=== PATIENT | female | born 1965 | race Caucasian/White ===

== ENCOUNTER 2016-05-04 07:14 | Emergency (ER) | payer OTHER ==
--- NOTE | 2016-05-04 08:09 | ED CLINICAL REPORT ---
Clinical Report - Physicians/Mid Levels [facility] [address] [place] [address] 05/04/2016 7:16 [id number] Time Seen: 07:33 May 04 2016. Arrived- By private vehicle. Historian- patient. CPT: ER phys charges level 4 plus (#154671). Application short arm splint (#[id number]). HISTORY OF PRESENT ILLNESS Chief Complaint: Injury to left forearm. The injury happened just prior to arrival. Occurred at home. The patient sustained a moderate direct blow (Kicked by horse.). Patient is experiencing moderate pain. No other injury. REVIEW OF SYSTEMS The patient has had swelling. No tingling, numbness, weakness, suspected foreign body or skin laceration. All systems otherwise negative, except as recorded above. PAST HISTORY See nurses notes. Animal Bite. ADDITIONAL SURGERIES: Endometrial ablation. Spinal fusion. Tonsillectomy & Adenoidectomy. Tubal Ligation. Medications: None. Allergies: No Known Drug Allergy. SOCIAL HISTORY Never smoker. No alcohol use or drug use. ADDITIONAL NOTES The nursing notes have been reviewed. PHYSICAL EXAM Vital Signs: 05/04/2016 07:28 BP: 135/83. HR: 86. RR: 18. O2 saturation: 98%. Temp: 97.8 F. Appearance: Alert. Appears to be in pain. Patient in moderate distress. Head: Head atraumatic. Neck: Normal inspection. C-spine non-tender. CVS: Normal heart rate and rhythm. Respiratory: Breath sounds normal. Chest nontender. Abdomen: No visible injury. Nontender. Back: Normal inspection. Skin: Skin intact. Skin warm. Normal skin color. Extremities: Left forearm: moderate tenderness and mild swelling located in the distal forearm. Neurovascular intact distally. No abrasion, ecchymosis or deformity. Extremities otherwise negative. Neuro, Vascular and Tendons: Vascular status intact. Sensation intact. Motor intact. Neuro: Oriented X 3. No motor deficit. No sensory deficit. LABS, X-RAYS, AND EKG Lt Forearm X-ray: Fracture of the distal ulna. Views: AP and lateral. Technique: good. The X-rays were independently viewed by me and interpreted contemporaneously by me. PROGRESS AND PROCEDURES Splint Application: Fiberglass short arm splint, sugar tong splint and sling applied to left forearm. Splint applied by tech with direct supervision by the ED physician. Reassessed extremity following splint application. Neurovascular intact. Follow-up recommended within 5 days. Course of Care: percocet 1 po Patient is stable. Symptoms better. Patient/family counseled. Disposition: Discharged. Condition: stable. CLINICAL IMPRESSION Closed nondisplaced transverse fracture of the distal, shaft of the left ulna INSTRUCTIONS Elevate affected areas above chest level today, for one days until better. Wear simple sling until released. Wear fiberglass splint until released. Do not work with left hand until released. Warnings: SEDATIVE MEDICATION: You were given sedative medication during your visit. Do not drive or operate dangerous machinery. GENERAL WARNINGS: Return or contact your physician immediately if your condition worsens or changes unexpectedly, if not improving as expected, or if other problems arise. Prescription Medications: Oxycodone/APAP 5 mg/325 mg: take 1 tablet orally every 6 hours as needed for pain. Dispense fifteen (15). No refills. Follow-up: Follow up with an orthopedic surgeon [phone] in five days. Call for the next available appointment. Understanding of the discharge instructions verbalized by patient and family. Discharge instructions reviewed with and understanding was verbalized by spouse. (Electronically signed by Gregg Jackson MD 05/07/2016 0:34)
--- NOTE | 2016-05-04 08:09 | ED ORDER SUMMARY ---
..... Patient: ALBERT SÁNCHEZ OrderSheet [facility] VisitID: [id number] [address] [place] [address] 50y, F Registration Date/Time: 05/04/2016 ORDER SHEET Weight: 65.7 kg (stated) Allergies: No Known Drug Allergy GENERAL ORDERS: Forearm Left Urgent (07:33 05/04/2016 Evaristo COCHRAN) (Ack 7:37 TBergley) (8:09 LWhalen R.N.) Splint (UE) (Left) (Sugar Tong) (Sugar Tong) (07:52 05/04/2016 Evaristo COCHRAN) (8:02 TBergley) Sling - arm (07:52 05/04/2016 Evaristo COCHRAN) (8:02 TBergley) MEDICATION ORDERS: Oxycodone-APAP PO 5/325 mg (NOW) (07:51 05/04/2016 Evaristo COCHRAN) (8:09 LWhaldagmar R.N.) IV FLUIDS: ORDER SHEET NOTES: [Electronically signed by Terrie De La Rosa R.N. (19:02 05/05/2016)] [Electronically signed by Gregg Jackson MD (00:34 05/07/2016)] [Electronically locked/signed by Terrie De La Rosa R.N. (19:02 05/05/2016)]
--- NOTE | 2016-05-04 08:09 | ED ORDER SUMMARY ---
..... Patient: ALBERT SÁNCHEZ OrderSheet [facility] VisitID: [id number] [address] [place] [address] 50y, F Registration Date/Time: 05/04/2016 ORDER SHEET Weight: 65.7 kg (stated) Allergies: No Known Drug Allergy GENERAL ORDERS: Forearm Left Urgent (07:33 05/04/2016 Evaristo COCHRAN) (Ack 7:37 TBergley) (8:09 LWhalen R.N.) Splint (UE) (Left) (Sugar Tong) (Sugar Tong) (07:52 05/04/2016 Evaristo COCHRAN) (8:02 TBergley) Sling - arm (07:52 05/04/2016 Evaristo COCHRAN) (8:02 TBergley) MEDICATION ORDERS: Oxycodone-APAP PO 5/325 mg (NOW) (07:51 05/04/2016 Evaristo COCHRAN) (8:09 LWhaldagmar R.N.) IV FLUIDS: ORDER SHEET NOTES: [Electronically signed by Terrie De La Rosa R.N. (19:02 05/05/2016)] [Electronically signed by Gregg Jackson MD (00:34 05/07/2016)] [Electronically locked/signed by Terrie De La Rosa R.N. (19:02 05/05/2016)]
--- NOTE | 2016-05-04 08:09 | ED NURSING NOTES ---
Clinical Report - Nurses [place] [address] [place] [address] 05/04/2016 7:16 [id number] Triage time 07:2 May 04 2016. Acuity: LEVEL 3. Chief Complaint: INJURY TO THE LEFT FOREARM. BETO COMA SCORE: Beto Coma Scale: 15- eyes open spontaneously (4); best verbal response- oriented x 4 (5); best motor response- obeys commands (6). --07:33 Terrie De La Rosa R.N. 07:28 05/04/16. BP: 135/83. HR: 86. RR: 18. O2 saturation: 98%. Temp: 97.8 F. Pain level now 5/10. --07:33 Terrie De La Rosa R.N. Weight: 65.7 kg stated. Height/Length: 63 inches Per Patient. BMI: 25.7. --07:32 Terrie De La Rosa R.N. Medications None. --07:29 Terrie De La Rosa R.N. Allergies No Known Drug Allergy. --07:29 Terrie De La Rosa R.N. History Arrived by private vehicle. Historian: patient. Accompanied by family. Mechanism of injury: a single moderate blow by being kicked (by horse no shoes). No neck pain, weakness or numbness. Treatment BASKET HAND BRAIDER: None. PAST MEDICAL HX: Tetanus status: up-to-date. SOCIAL HX: Never smoker. No alcohol use or drug use. SELF HARM ASSESSMENT: A self harm assessment was performed. The patient answered "no" to the question "Have you recently felt down, depressed, or hopeless?" and "Do you have thoughts of harming or killing yourself?". FALL RISK ASSESSMENT: Fall risk assessment completed. No fall risk identified. NUTRITIONAL RISK ASSESSMENT: The nutritional risk assessment revealed no deficiencies. FUNCTIONAL ASSESSMENT: Functional assessment: no impairments noted. LEARNING NEEDS ASSESSMENT: The learning needs assessment revealed no barriers. ABUSE ASSESSMENT: Abuse assessment: (yes) The patient was asked "Do you feel safe in your home?". SKIN INTEGRITY ASSESSMENT: Skin integrity risk assessment completed. No skin integrity risk identified. --07:33 Terrie De La Rosa R.N. PROBLEMS: Animal Bite. --07:30 Terrie De La Rosa R.N. ADDITIONAL SURGERIES: Endometrial ablation. Spinal fusion. Tonsillectomy & Adenoidectomy. Tubal Ligation. --07:30 Terrie De La Rosa R.N. Interventions ID band on patient. --07:33 Terrie De La Rosa R.N. PHYSICAL ASSESSMENT Ambulatory to room. GENERAL / NEURO / PSYCH: Oriented X 4. Alert. Appears in no acute distress. Appears in pain. EXTREMITIES: Capillary refill is less than 2 seconds in the extremities. Extremity pulses are within normal limits. Extremities exhibit normal ROM. Neuro-vascular status intact to the extremity. Left forearm: tenderness. SKIN: Skin intact. Skin is warm and dry. --07:33 Terrie De La Rosa R.N. NURSING PROGRESS NOTES The plan of care for this patient includes an assessment with efforts to address patient positioning and appropriate ambient lighting; impairment of the musculoskeletal system. Cold pack applied. Extremity elevated. Reassurance given. Call light placed in reach. Side rails up x 1. Bed placed in lowest position. Brakes of bed on. --07:33 Terrie De La Rosa R.N. 07:58 05/04/2016 Oxycodone-APAP (Oxycodone-Acetaminophen) PO 5/325 mg Tablets 1 tab given. Allergies verified, confirmed 5 rights and sedative warning given to the patient and patient's instructor of spanish. --08:09 Terrie De La Rosa R.N. Sugar tong upper extremity splint applied to left arm by tech. Distal pulses intact, sensation intact and motor within normal limits. --08:16 Caroline Mcnair. DISPOSITION / DISCHARGE Departure time: 08:15 May 04 2016. Condition at departure: improved. No learning barriers present. Discharge instructions provided and reviewed with the patient and spouse. Reviewed warnings. Reviewed medication(s). Treatments reviewed. Reviewed referrals. Work note given. Patient and spouse verbalized understanding. Written instructions provided in Rwandan. The patient was discharged home and accompanied by spouse. She left the Emergency Department ambulatory and via private vehicle. Spouse driving. --08:29 Terrie De La Rosa R.N. 07:28 05/04/16. BP: 135/83. HR: 86. RR: 18. O2 saturation: 98%. Temp: 97.8 F. Pain level now 07/10. --08:29 Terrie De La oRsa R.N. Locked/Released at 05/05/2016 19:02 by Trerie De La Rosa R.N.
--- NOTE | 2016-05-04 08:09 | ED NURSING NOTES ---
Clinical Report - Nurses [place] [address] [place] [address] 05/04/2016 7:16 [id number] Triage time 07:2 May 04 2016. Acuity: LEVEL 3. Chief Complaint: INJURY TO THE LEFT FOREARM. BETO COMA SCORE: Beto Coma Scale: 15- eyes open spontaneously (4); best verbal response- oriented x 4 (5); best motor response- obeys commands (6). --07:33 Terrie De La Rosa R.N. 07:28 05/04/16. BP: 135/83. HR: 86. RR: 18. O2 saturation: 98%. Temp: 97.8 F. Pain level now 5/10. --07:33 Terrie De La Rosa R.N. Weight: 65.7 kg stated. Height/Length: 63 inches Per Patient. BMI: 25.7. --07:32 Terrie De La Rosa R.N. Medications None. --07:29 Terrie De La Rosa R.N. Allergies No Known Drug Allergy. --07:29 Terrie De La Rosa R.N. History Arrived by private vehicle. Historian: patient. Accompanied by family. Mechanism of injury: a single moderate blow by being kicked (by horse no shoes). No neck pain, weakness or numbness. Treatment PET TECHNOLOGIST: None. PAST MEDICAL HX: Tetanus status: up-to-date. SOCIAL HX: Never smoker. No alcohol use or drug use. SELF HARM ASSESSMENT: A self harm assessment was performed. The patient answered "no" to the question "Have you recently felt down, depressed, or hopeless?" and "Do you have thoughts of harming or killing yourself?". FALL RISK ASSESSMENT: Fall risk assessment completed. No fall risk identified. NUTRITIONAL RISK ASSESSMENT: The nutritional risk assessment revealed no deficiencies. FUNCTIONAL ASSESSMENT: Functional assessment: no impairments noted. LEARNING NEEDS ASSESSMENT: The learning needs assessment revealed no barriers. ABUSE ASSESSMENT: Abuse assessment: (yes) The patient was asked "Do you feel safe in your home?". SKIN INTEGRITY ASSESSMENT: Skin integrity risk assessment completed. No skin integrity risk identified. --07:33 Terrie De La Rosa R.N. PROBLEMS: Animal Bite. --07:30 Terrie De La Rosa R.N. ADDITIONAL SURGERIES: Endometrial ablation. Spinal fusion. Tonsillectomy & Adenoidectomy. Tubal Ligation. --07:30 Terrie De La Rosa R.N. Interventions ID band on patient. --07:33 Terrie De La oRsa R.N. PHYSICAL ASSESSMENT Ambulatory to room. GENERAL / NEURO / PSYCH: Oriented X 4. Alert. Appears in no acute distress. Appears in pain. EXTREMITIES: Capillary refill is less than 2 seconds in the extremities. Extremity pulses are within normal limits. Extremities exhibit normal ROM. Neuro-vascular status intact to the extremity. Left forearm: tenderness. SKIN: Skin intact. Skin is warm and dry. --07:33 Terrie De La Rosa R.N. NURSING PROGRESS NOTES The plan of care for this patient includes an assessment with efforts to address patient positioning and appropriate ambient lighting; impairment of the musculoskeletal system. Cold pack applied. Extremity elevated. Reassurance given. Call light placed in reach. Side rails up x 1. Bed placed in lowest position. Brakes of bed on. --07:33 Terrie De La Rosa R.N. 07:58 05/04/2016 Oxycodone-APAP (Oxycodone-Acetaminophen) PO 5/325 mg Tablets 1 tab given. Allergies verified, confirmed 5 rights and sedative warning given to the patient and patient's subsea engineer. --08:09 Terrie De La Rosa R.N. Sugar tong upper extremity splint applied to left arm by tech. Distal pulses intact, sensation intact and motor within normal limits. --08:16 Caroline Mcnair. DISPOSITION / DISCHARGE Departure time: 08:15 May 04 2016. Condition at departure: improved. No learning barriers present. Discharge instructions provided and reviewed with the patient and spouse. Reviewed warnings. Reviewed medication(s). Treatments reviewed. Reviewed referrals. Work note given. Patient and spouse verbalized understanding. Written instructions provided in Lebanese. The patient was discharged home and accompanied by spouse. She left the Emergency Department ambulatory and via private vehicle. Spouse driving. --08:29 Terrie De La Rosa R.N. 07:28 05/04/16. BP: 135/83. HR: 86. RR: 18. O2 saturation: 98%. Temp: 97.8 F. Pain level now 07/10. --08:29 Terrie De La Rosa R.N. Locked/Released at 05/05/2016 19:02 by Terrie De La Rosa R.N.
--- NOTE | 2016-05-04 08:09 | ED CLINICAL REPORT ---
Clinical Report - Physicians/Mid Levels [facility] [address] [place] [address] 05/04/2016 7:16 [id number] Time Seen: 07:33 May 04 2016. Arrived- By private vehicle. Historian- patient. CPT: ER phys charges level 4 plus (#014689). Application short arm splint (#[id number]). HISTORY OF PRESENT ILLNESS Chief Complaint: Injury to left forearm. The injury happened just prior to arrival. Occurred at home. The patient sustained a moderate direct blow (Kicked by horse.). Patient is experiencing moderate pain. No other injury. REVIEW OF SYSTEMS The patient has had swelling. No tingling, numbness, weakness, suspected foreign body or skin laceration. All systems otherwise negative, except as recorded above. PAST HISTORY See nurses notes. Animal Bite. ADDITIONAL SURGERIES: Endometrial ablation. Spinal fusion. Tonsillectomy & Adenoidectomy. Tubal Ligation. Medications: None. Allergies: No Known Drug Allergy. SOCIAL HISTORY Never smoker. No alcohol use or drug use. ADDITIONAL NOTES The nursing notes have been reviewed. PHYSICAL EXAM Vital Signs: 05/04/2016 07:28 BP: 135/83. HR: 86. RR: 18. O2 saturation: 98%. Temp: 97.8 F. Appearance: Alert. Appears to be in pain. Patient in moderate distress. Head: Head atraumatic. Neck: Normal inspection. C-spine non-tender. CVS: Normal heart rate and rhythm. Respiratory: Breath sounds normal. Chest nontender. Abdomen: No visible injury. Nontender. Back: Normal inspection. Skin: Skin intact. Skin warm. Normal skin color. Extremities: Left forearm: moderate tenderness and mild swelling located in the distal forearm. Neurovascular intact distally. No abrasion, ecchymosis or deformity. Extremities otherwise negative. Neuro, Vascular and Tendons: Vascular status intact. Sensation intact. Motor intact. Neuro: Oriented X 3. No motor deficit. No sensory deficit. LABS, X-RAYS, AND EKG Lt Forearm X-ray: Fracture of the distal ulna. Views: AP and lateral. Technique: good. The X-rays were independently viewed by me and interpreted contemporaneously by me. PROGRESS AND PROCEDURES Splint Application: Fiberglass short arm splint, sugar tong splint and sling applied to left forearm. Splint applied by tech with direct supervision by the ED physician. Reassessed extremity following splint application. Neurovascular intact. Follow-up recommended within 5 days. Course of Care: percocet 1 po Patient is stable. Symptoms better. Patient/family counseled. Disposition: Discharged. Condition: stable. CLINICAL IMPRESSION Closed nondisplaced transverse fracture of the distal, shaft of the left ulna INSTRUCTIONS Elevate affected areas above chest level today, for one days until better. Wear simple sling until released. Wear fiberglass splint until released. Do not work with left hand until released. Warnings: SEDATIVE MEDICATION: You were given sedative medication during your visit. Do not drive or operate dangerous machinery. GENERAL WARNINGS: Return or contact your physician immediately if your condition worsens or changes unexpectedly, if not improving as expected, or if other problems arise. Prescription Medications: Oxycodone/APAP 5 mg/325 mg: take 1 tablet orally every 6 hours as needed for pain. Dispense fifteen (15). No refills. Follow-up: Follow up with an orthopedic surgeon [phone] in five days. Call for the next available appointment. Understanding of the discharge instructions verbalized by patient and family. Discharge instructions reviewed with and understanding was verbalized by spouse. (Electronically signed by Gregg Jackson MD 05/07/2016 0:34)
--- NOTE | 2016-05-04 10:48 | DIAGNOSTIC IMAGING REPORT ---
PROCEDURE: XR FOREARM - LEFT INDICATION: Kicked by a horse, initial encounter. TECHNIQUE: AP and lateral views. COMPARISON: None. FINDINGS: Nondisplaced transverse fracture of the ulnar midshaft. Joint spaces and soft tissues are unremarkable. IMPRESSION: 1. Nondisplaced left ulnar fracture.
--- NOTE | 2016-05-07 00:35 | ED DISCHARGE INSTRUCTIONS ---
Patient: ALBERT SÁNCHEZ General Instructions [facility] VisitID: [id number] [place] [address] 50y, F Registration Date/Time: 05/04/2016 Closed nondisplaced transverse fracture of the distal, shaft of the left ulna INSTRUCTIONS Elevate affected areas above chest level today, for one days until better. Wear simple sling until released. Wear fiberglass splint until released. Do not work with left hand until released. Warnings: SEDATIVE MEDICATION: You were given sedative medication during your visit. Do not drive or operate dangerous machinery. GENERAL WARNINGS: Return or contact your physician immediately if your condition worsens or changes unexpectedly, if not improving as expected, or if other problems arise. Prescription Medications: Oxycodone/APAP 5 mg/325 mg: take 1 tablet orally every 6 hours as needed for pain. Dispense fifteen (15). No refills. Follow-up: Follow up with an orthopedic surgeon [phone] in five days. Call for the next available appointment. Understanding of the discharge instructions verbalized by patient and family. Discharge instructions reviewed with and understanding was verbalized by spouse. ADDITIONAL INFORMATION Fracture: Forearm (Radius & Ulna) (No Reduction Needed) You have a break (fracture) of both bones in the forearm (radiusand ulna). The bones are not out of place and will not need to be set (reduced). This fracture usually takes 4-6 weeks to heal. Initial treatment is with a splint or cast. Home Care: Keep your arm elevated to reduce pain and swelling. When sitting or lying down elevate your arm above the level of your heart. You can do this by placing your arm on a pillow that rests on your chest or on a pillow at your side. This is most important during the first 48 hours after injury. Apply an ice pack (ice cubes in a plastic bag, wrapped in a towel) over the injured area for 20 minutes every 1-2 hours the first day. You can place the ice pack inside the sling and directly over the splint/cast. Continue with ice packs 3-4 times a day for the next two days, then as needed for the relief of pain and swelling. Keep the cast/splint completely dry at all times. Bathe with your cast/splint out of the water, protected with a large plastic bag, rubber-banded at the top end. If a fiberglass splint/cast gets wet, you can dry it with a hair-dryer. You may use acetaminophen (Tylenol) or ibuprofen (Motrin, Advil) to control pain, unless another pain medicine was prescribed. [NOTE: If you have chronic liver or kidney disease or ever had a stomach ulcer or GI bleeding, talk with your doctor before using these medicines.] Follow Up with your doctor in one week, or as advised by our staff, to be sure the bone is healing properly. If a splint was applied, it will be changed to a cast during your follow-up visit. [NOTE: If x-rays were taken, they will be reviewed by a radiologist. You will be notified if there are any new findings that may affect your care.] Get Prompt Medical Attention if any of the following occur: The plaster cast or splint becomes wet or soft The fiberglass cast or splint remains wet for more than 24 hours Increased tightness or pain under the cast or splint Fingers become swollen, cold, blue, numb or tingly Sling A sling is designed to support your arm in a position of rest. It is used for injuries of the hand, forearm, upper arm, and shoulder. A shoulder that is immobilized too long can become stiff and lose range of motion. Follow up with your doctor as advised and do not use the sling longer than directed. Home Use: Leave the sling in place as long as directed by your doctor. Unless told otherwise, you may remove it when bathing, dressing, and when you go to sleep. The sling is adjustable. If it becomes loose, adjust it so that your forearm is horizontal (level with the ground). Your hand should be level with the elbow. Splint Care, Fiberglass The following will help you care for your splint: It will take up totwo hours for your fiber glass splint to fully harden; therefore, do notapply any pressure on it during that time or else it may break. To prevent swelling under the splint, for thefirst 48 hours: If the splint is on yourarm, keep it in a sling or raised to shoulder level when sitting or standing; rest it on your chest or on a pillow at your side when lying down. If the splint is on yourfoot, keep it propped up above the level of your waist when sitting or lying. Avoid crutch walking as much as possible during this time. Keep the splint/cast dry at all times. Bathe with your splint/cast well out of the water, protected with a large plastic bag, rubber-banded at the top end. If a fiberglass cast or splint gets wet, you can dry it with a hair-dryer. Follow-up care Follow up with your doctor or this facility as advised. When to seek medical care Get prompt medical attention if any of the following occur: Bad odor from the splint or wound-fluid stains the splint The splint cracks or remains wet over 24 hours Increasing tightness or pressure under the splint Fingers or toes become swollen, cold, blue, numb or tingly Increased pain under the splint You have been given the following additional information: Radius And Ulna Fx, No Reduction Required Sling Splint Care, Fiberglass Do not work with left hand until released. (Electronically signed by Gregg Jackson MD 05/07/2016 0:34)
--- NOTE | 2016-05-07 00:35 | ED MED RECONCILIATION SUMMARY ---
Patient: ALBERT SÁNCHEZ Medication Reconciliation Report [facility] VisitID: [id number] [address] [place] [address] 50y, F Registration Date/Time: 05/04/2016 Weight: 65.7 kg Height/Length: 63 in. BMI: 25.7 ALLERGIES: No Known Drug Allergy The patient's Home Medications are listed below: NONE. The source(s) of the original Home Medication information: Not obtained. The following Medications were given to the patient in the Emergency Department: Oxycodone-APAP [PO] PO 1 tab, administered: 05/04/2016 7:58:00 AM The following Medications were prescribed to the patient: Oxycodone/APAP 5 mg/325 mg: take 1 tablet orally every 6 hours as needed for pain. Dispense fifteen (15). No refills. -- Gregg Jackson MD
--- NOTE | 2016-05-07 00:35 | ED MAR SUMMARY ---
..... Medication Administration Record [facility] [address] [place] [address] Patient: ALBERT SÁNCHEZ Visit ID: [id number] 50y, F Weight: 65.7 kg Height/Length: 63 in BMI: 25.7 ALLERGIES: No Known Drug Allergy Given 07:58 05/04/2016 Terrie De La Rosa RZoëNZoë Medication Administered: OXYCODONE-APAP [PO] (OXYCODONE-ACETAMINOPHEN), Dose: 1 tab 5/325 mg Tablets PO. Medication Ordered: Oxycodone-APAP PO 5/325 mg (NOW).
--- NOTE | 2016-05-07 00:35 | ED MAR SUMMARY ---
..... Medication Administration Record [facility] [address] [place] [address] Patient: ALBERT SÁNCHEZ Visit ID: [id number] 50y, F Weight: 65.7 kg Height/Length: 63 in BMI: 25.7 ALLERGIES: No Known Drug Allergy Given 07:58 05/04/2016 Terrie De La Rosa RZoëNZoë Medication Administered: OXYCODONE-APAP [PO] (OXYCODONE-ACETAMINOPHEN), Dose: 1 tab 5/325 mg Tablets PO. Medication Ordered: Oxycodone-APAP PO 5/325 mg (NOW).
--- NOTE | 2016-05-07 00:35 | ED MED RECONCILIATION SUMMARY ---
Patient: ALBERT SÁNCHEZ Medication Reconciliation Report [facility] VisitID: [id number] [address] [place] [address] 50y, F Registration Date/Time: 05/04/2016 Weight: 65.7 kg Height/Length: 63 in. BMI: 25.7 ALLERGIES: No Known Drug Allergy The patient's Home Medications are listed below: NONE. The source(s) of the original Home Medication information: Not obtained. The following Medications were given to the patient in the Emergency Department: Oxycodone-APAP [PO] PO 1 tab, administered: 05/04/2016 7:58:00 AM The following Medications were prescribed to the patient: Oxycodone/APAP 5 mg/325 mg: take 1 tablet orally every 6 hours as needed for pain. Dispense fifteen (15). No refills. -- Gregg Jackson MD
== END 2016-05-04 08:15 | disposition home or self-care (01) ==
LOC: ED SRH 07:14
DX: S52.225A Nondisplaced transverse fracture of shaft of left ulna, initial encounter for closed fracture (principal); W55.12XA Struck by horse, initial encounter; Y93.9 Activity, unspecified; Y92.009 Unspecified place in unspecified non-institutional (private) residence as the place of occurrence of the external cause; Y99.9 Unspecified external cause status